=== PATIENT | male | born 1960 | race Caucasian/White ===

== ENCOUNTER → 2024-03-06 07:04 | Outpatient (REF) | payer OTHER, SELFPAY | LOC: DHCBC/DCA 07:04 | PROVIDERS: ATTENDING PHYSICIAN Internal Medicine Cardiovascular Disease | DX: I25.10 Atherosclerotic heart disease of native coronary artery without angina pectoris (principal); E78.2 Mixed hyperlipidemia; R07.89 Other chest pain; I45.10 Unspecified right bundle-branch block | CPT/HCPCS: 78452; 93017; A9500 ==

== ENCOUNTER → 2024-03-14 06:57 | Outpatient (REF) | payer OTHER, SELFPAY | LOC: RCS 06:57 | PROVIDERS: ATTENDING PHYSICIAN Nurse Practitioner | DX: I25.10 Atherosclerotic heart disease of native coronary artery without angina pectoris (principal); R07.89 Other chest pain; I45.10 Unspecified right bundle-branch block | CPT/HCPCS: 93306 ==